=== PATIENT | female | born 1945 | race Caucasian/White ===

== ENCOUNTER 2017-11-01 03:01 | Emergency (ER) | payer OTHER, MEDICARE ==
[~2017-11-01 03:01] MED LIST: ACYC-113 PO; AMOX500T PO; ASPI-496 PO; B CO PO; CLON0.2T PO; COLESTIPOL PO; DIPH25CA61 PO; ESTR1POW13 PO; FLAX100016 PO; FOLI0.4T2 PO; GABA300C10 PO; IBUP-1484 PO; LACT1CAP43 PO; LOSA100T6 PO; LYSI500T3 PO; MILK150C2 PO; OMEP-110 PO; ONDA4TAB7 PO; OXYC-307 PO; PRAV80TA2 PO; TEMA15CA PO; VERA240C2 PO
[2017-11-01] MEDS ORDERED: [UNRECOGNIZED DRUG - REMARK] PO (03:26)
[2017-11-01 03:28] LABS: BASOPHILS # (AUTO) 0.11 x10^3/uL (0-0.1); BASOPHILS % (AUTO) 2 % (0-1); EOSINOPHILS % (AUTO) 2 % (1-7); LYMPHOCYTES # (AUTO) 1.79 x10^3/uL (1-3.4); LYMPHOCYTES % (AUTO) 29 % (22-44); MD NO; MEAN CORPUSCULAR HEMOGLOBIN 34.6 pg (27.0-34.8); MEAN CORPUSCULAR HGB CONC 34.7 g/dL (32.4-35.8); MEAN CORPUSCULAR VOLUME 99.7 fL (80-100); MEAN PLATELET VOLUME 8.7 fL (7.4-10.4); MONOCYTES # (AUTO) 0.23 x10^3/uL (0.2-0.8); MONOCYTES % (AUTO) 4 % (2-9); NEUTROPHILS # (AUTO) 3.89 x10^3/uL (1.8-6.8); NEUTROPHILS % (AUTO) 64 % (42-75); PLATELET COUNT 145 x10^3/uL (130-400); RED BLOOD COUNT 4.13 x10^6/uL (3.82-5.3); RED CELL DISTRIBUTION WIDTH 12.5 % (9.6-15.2)
[2017-11-01 03:40] LABS: ALANINE AMINOTRANSFERASE 18 U/L (12-78); ALBUMIN 3.4 g/dL (3.4-5.0); ANION GAP 10 mmol/L (5-15); CALCIUM 9.2 mg/dL (8.5-10.1); CHLORIDE 112 mmol/L (98-107); CREATININE 0.81 mg/dL (0.55-1.02)
[2017-11-01 03:43] LABS: ALKALINE PHOSPHATASE 84 U/L (45-117); BILIRUBIN,TOTAL 0.7 mg/dL (0.2-1.0); TOTAL PROTEIN 6.5 g/dL (6.4-8.2); TROPONIN I < 0.015 ng/mL (0.000-0.045)
[2017-11-01] MEDS ORDERED: OMNIPAQUE 350 MG/ML, 100ML BOTTLE ONE (04:17)
[2017-11-01 05:27] VITALS: BP 97/61
== END 2017-11-01 05:30 | disposition home or self-care (01) ==
LOC: ED 05:15
DX: R07.2 Precordial pain (principal); R10.13 Epigastric pain; K80.00 Calculus of gallbladder with acute cholecystitis without obstruction; Z87.891 Personal history of nicotine dependence
CPT/HCPCS: 36415; 71045; 71275; 74175; 80053; 83605; 83690; 83880; 84484; 85025; 93005; 99285; Q9967